=== PATIENT | female | born 1965 | race Caucasian/White ===

== ENCOUNTER 2020-12-29 10:10 | Outpatient (CLI) | payer OTHER ==
--- NOTE | 2020-12-29 11:43 | XRAY Report ---
PROCEDURE: Foot 3 View RT INDICATIONS: RIGHT FOOT PAIN TECHNIQUE: 3 views of the foot were acquired. COMPARISON: None FINDINGS: Bones: No fractures or dislocations. No suspicious bony lesions. Soft tissues: No tibiotalar joint effusion. Achilles tendon appears normal. IMPRESSION: No trauma found, source of current right foot pain is not seen. There is a slight degree of first MTP joint space narrowing. Please correlate for point tenderness in this region which appears degenerati ve in origin. Reviewed by: Chico Levine MD on 12/29/2020 11:42 AM PDT Approved by: Chico Levine MD on 12/29/2020 11:42 AM PDT Station ID: [id number]
== END 2020-12-29 23:59 | disposition home or self-care (01) ==
LOC: DI.S 10:10
PROVIDERS: ATTEND Physician Assistant Medical
DX: M19.071 Primary osteoarthritis, right ankle and foot (principal)

== ENCOUNTER → 2021-06-07 | Outpatient (CLI) | payer OTHER ==
[2021-06-07 15:58] LABS: BILIRUBIN,URINE NEGATIVE (NEGATIVE); CLARITY,URINE CLEAR (CLEAR); GLUCOSE, URINE (UA) NEGATIVE (NEGATIVE); KETONES,URINE (UA) NEGATIVE (NEGATIVE); LEUKOCYTE ESTERASE, URINE NEGATIVE (NEGATIVE); NITRITE,URINE NEGATIVE (NEGATIVE); OCCULT BLOOD,URINE NEGATIVE (NEGATIVE); PROTEIN,URINE NEGATIVE (NEGATIVE); UROBILINOGEN,URINE 0.2 (NORMAL) E.U./dL (NORMAL)
[2021-06-07 16:12] LABS: BACTERIA,URINE None Seen /HPF (None Seen); RBC,URINE 0-5 /HPF (0-5); SQUAMOUS EPITHELIAL CELL,UR FEW Squamous (<= Few); WBC,URINE 0-3 /HPF (0-5)
== END ==
LOC: LAB.R 08:00
PROVIDERS: ATTEND Physician Assistant Medical
DX: R30.0 Dysuria (principal)
CPT/HCPCS: 81001; 87077; 87086

== ENCOUNTER 2022-08-13 15:39 | Emergency (ER) | payer BC, OTHER ==
[2022-08-13 17:19] LABS: BASOPHILS % (AUTO) 0.6 %; EOSINOPHILS # (AUTO) 0.1 10^3/uL (0.0-0.7); EOSINOPHILS % (AUTO) 1.3 %; HCT - HEMATOCRIT 42.6 % (37.0-47.0); HGB - HEMOGLOBIN 14.7 g/dL (12.0-16.0); LYMPHOCYTES # (AUTO) 2.5 10^3/uL (1.5-3.5); LYMPHOCYTES % (AUTO) 39.3 %; MEAN CORPUSCULAR HEMOGLOBIN 31.4 pg (27.0-31.0); MEAN CORPUSCULAR HGB CONC 34.5 g/dL (32.0-36.0); MEAN PLATELET VOLUME 9.2 fL (7.9-10.8); MONOCYTES # (AUTO) 0.5 10^3/uL (0.0-1.0); MONOCYTES % (AUTO) 7.7 %; NEUTROPHILS # (AUTO) 3.2 10^3/uL (1.5-6.6); NEUTROPHILS % (AUTO) 50.9 %; PLT - PLATELET COUNT 229 10^3/uL (130-450); RED BLOOD COUNT 4.68 10^6/uL (4.20-5.40); RED CELL DISTRIBUTION WIDTH 12.2 % (12.0-15.0); WHITE BLOOD COUNT 6.3 x10^3/uL (4.8-10.8)
[2022-08-13 17:33] LABS: ALBUMIN 4.3 g/dL (3.2-5.5); ALBUMIN/GLOBULIN RATIO 1.7 (1.0-2.2); BILIRUBIN,TOTAL 0.9 mg/dL (0.2-1.0); POTASSIUM 4.1 mmol/L (3.5-5.0); TOTAL PROTEIN 6.8 g/dL (6.7-8.2)
[2022-08-13 17:51] LABS: BILIRUBIN,URINE NEGATIVE (NEGATIVE); GLUCOSE, URINE (UA) NEGATIVE (NEGATIVE); KETONES,URINE (UA) NEGATIVE (NEGATIVE); LEUKOCYTE ESTERASE, URINE NEGATIVE (NEGATIVE); NITRITE,URINE NEGATIVE (NEGATIVE); OCCULT BLOOD,URINE NEGATIVE (NEGATIVE); PROTEIN,URINE NEGATIVE (NEGATIVE); UROBILINOGEN,URINE 0.2 (NORMAL) E.U./dL (NORMAL)
[2022-08-13 17:53] LABS: CLARITY,URINE CLEAR (CLEAR)
[2022-08-13 18:24] VITALS: BP 160/94
[2022-08-13] MEDS ORDERED: KETOROLAC 30 MG/ML VIAL IVP STA (18:27)
[2022-08-13] MEDS ORDERED: iohexoL-300 100 ML VIAL ONE (18:30)
[2022-08-13] MEDS ORDERED: IBUPROFEN 600 MG TABLET PO STA (18:39)
--- NOTE | 2022-08-13 18:44 | ED Physician Documentation ---
History of Present Illness - Stated complaint Stated Complaint: SEVERE BACK PX - Chief complaint Chief Complaint: Abd Pain - Additonal information Additional information: 57-year-old female presents emergency department for evaluation of posterior back pain that has been getting worse since recent diagnosis of urinary tract infection on 30 July. She was prescribed a 10-day course of cephalexin which she was supposed to take 4 times a day. She is only been able to manage to take it 2-3 times a day However despite this she has begun having some pain in her back near her kidney area. She did get a massage yesterday and the massage therapist told her she could potentially have pyelonephritis. The patient is denying any fevers vomiting. She has had some loose and watery stools over the last 24 hours, nonbloody. Past surgical history most significant for total abdominal hysterectomy at 42. She is on estrogen. Review of Systems Nose: reports: Reviewed and negative Throat: reports: Reviewed and negative Cardiac: reports: Reviewed and negative Respiratory: reports: Reviewed and negative GI: reports: Diarrhea. denies: Abdominal Pain : reports: Dysuria, Frequency, Hesitancy Skin: reports: Reviewed and negative Musculoskeletal: reports: Reviewed and negative PD PAST MEDICAL HISTORY - Allergies Allergies/Adverse Reactions: Allergies Allergy/AdvReac Type Severity Reaction Status Date / Time benzoin Allergy Unknown Verified 08/13/22 16:23 cefdinir Allergy Unknown Verified 08/13/22 16:23 Penicillins Allergy Unknown Verified 08/13/22 16:23 codeine AdvReac Nausea Verified 08/13/22 16:23 PD ED PE NORMAL - General General: Alert and oriented X 3, No acute distress - HEENT HEENT: PERRL - Neck Neck: Supple, no meningeal sign - Cardiac Cardiac: RRR, No murmur - Respiratory Respiratory: No respiratory distress, Clear bilaterally - Abdomen Abdomen: Normal bowel sounds, Soft, Non tender - Back Back: No CVA TTP (Focal tenderness elicited just below the CVA region on both sides without swelling erythema or ecchymosis. 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 Eye Opening: Spontaneous Motor: Obeys Commands Verbal: Oriented GCS Score: 15 Results - Vitals Vitals: Vital Signs - 24 hr 08/13/22 08/13/22 08/13/22 16:19 18:21 19:20 Temperature 36.8 C Heart Rate 63 58 L 72 Respiratory 16 20 16 Rate Blood Pressure 136/85 H 160/94 H O2 Saturation 96 98 97 Oxygen O2 Source Room air - Labs Labs: Laboratory Tests 08/13/22 08/13/22 08/13/22 05:14 05:14 17:44 WBC 6.3 RBC 4.68 Hgb 14.7 Hct 42.6 MCV 91.0 MCH 31.4 H MCHC 34.5 RDW 12.2 Plt Count 229 MPV 9.2 Neut # (Auto) 3.2 Lymph # (Auto) 2.5 [place] # (Auto) 0.5 Eos # (Auto) 0.1 Baso # (Auto) 0.0 Absolute Nucleated RBC 0.00 Nucleated RBC % 0.0 Sodium 139 Potassium 4.1 Chloride 103 Carbon Dioxide 30 Anion Gap 6.0 BUN 12 Creatinine 1.0 Estimated GFR (MDRD) 58 L Glucose 106 H Calcium 9.0 Total Bilirubin 0.9 AST 28 ALT 42 Alkaline Phosphatase 38 L Total Protein 6.8 Albumin 4.3 Globulin 2.5 Albumin/Globulin Ratio 1.7 Lipase 40 Urine Color YELLOW Urine Clarity CLEAR Urine pH 7.0 Ur Specific [place] <=1.005 Urine Protein NEGATIVE Urine Glucose (UA) NEGATIVE Urine Ketones NEGATIVE Urine Occult Blood NEGATIVE Urine Nitrite NEGATIVE Urine Bilirubin NEGATIVE Urine Urobilinogen 0.2 (NORMAL) Ur Leukocyte Esterase NEGATIVE Ur Microscopic Review NOT INDICATED Urine Culture Comments NOT INDICATED - Rads (name of study) CT abd Radiology: Final report received (No acute abnormalities. No renal stones or hydronephrosis. Mild hepatomegaly and moderate hepatic steatosis. Mild diverticulosis without-itis. Normal appendix) PD MEDICAL DECISION MAKING - ED course Complexity details: reviewed results, re-evaluated patient, considered differential, d/w patient ED course: 57-year-old female presents emergency department for focal posterior back pain just below her CVA margins. She was diagnosed with a urinary tract infection on the and started on Keflex. She continues to have some dysuria and urgency. Today CBC and electrolytes were without acute worrisome findings. Her urine is unremarkable for markers of infection. Her abdominal exam was also benign. Patient was quite concerned however that she could have an ascending infection or pyelonephritis despite lack of fevers or leukocytosis. Therefore we completed a CT of the abdomen that does not show any acute obvious findings. There is incidental note made of diverticulitis as well as some hepatic stea tosis/hepatomegaly. These findings were discussed with the patient and her at the bedside. She had been administered Tylenol here in the emergency department which seemed to improve her symptoms and I am making the recommendation she continue this at home. I do not have any clinical findings to suggest acute cystitis. Given her age and obesity it is possible that she is entering menopause and may simply have overactive bladder versus interstitial cystitis. She is advised to follow closely with her primary care provider. Otherwise emergent return precautions discussed Departure - Departure Disposition: Home, Self Care Clinical Impression: Urinary urgency, Diverticulosis, Hepatomegaly, Hepatic steatosis Back pain Qualifiers: Back pain location: back pain in other location Chronicity: acute Qualified Code(s): M54.9 - Dorsalgia, unspecified Condition: Stable Record reviewed to determine appropriate education?: Yes Comments: Tarsha dumont are seen today in the emergency department because you have been having Some back pain just below your kidney region that began today. You are diagnosed with a urinary tract infection on 30 July and began taking Cephalexin. Here in the emergency department your CBC, electrolytes and urine were all essentially unremarkable. There is nothing to suggest a urinary tract infection. You can stop taking the cephalexin. We did do a CT of your abdomen. There is an incidental note made of some hepatic steatosis or fatty liver as well as diverticulosis of the large intestine. There is nothing surgical and nothing to suggest kidney stones, ureter stones or even pyelonephritis. Given your age, and your medical history I suspect that you may be developing an overactive bladder or even developing interstitial cystitis. I would like you to discuss this closely with your primary care provider. If at any point you develop fevers, have uncontrolled vomiting, have sudden severe abdominal pain or fainting episodes and please return immediately to the ER for second evaluation.
--- NOTE | 2022-08-13 19:23 | CT Report ---
PROCEDURE: ABDOMEN/PELVIS WO INDICATIONS: bilateral posterior flank pain TECHNIQUE: Noncontrast 5 mm thick sections acquired from the diaphragms to the symphysis. 5 mm coronal and sagi ttal reformats were then performed. For radiation dose reduction, the following was used: automated exposure control, adjustment of mA and/or kV according to patient size. COMPARISON: None. FINDINGS: Image quality: Excellent. ABDOMEN: Lung bases: Mild scars and atelectasis in right middle lobe and lingula. Heart size is normal. Smal l hiatal hernia. Solid organs: Liver is mildly enlarged. There is moderate hepatic steatosis. Spleen are normal in si ze. Gallbladder is normal. Pancreas is normal in contours. No adrenal nodules. Kidneys are normal in size, without hydronephrosis or nephrolithiasis. Peritoneum and bowel: Unenhanced bowel loops demonstrate normal wall thickness and caliber. Appendix is normal. Mild diverticulosis. No acute diverticulitis. No free fluid or air. Nodes and vessels: No retroperitoneal or mesenteric adenopathy by size criteria. Aorta and inferior vena cava are normal in caliber. Miscellaneous: Small fat-containing umbilical hernia. PELVIS: Genitourinary: Bladder wall thickness is normal. Uterus is absent. Ovaries are not visualized. No f ree fluid in pelvis. Miscellaneous: No inguinal hernias or adenopathy. Bones: No suspicious bony lesions. No vertebral body compression fractures. IMPRESSION: 1. No acute abnormalities. No renal stones or hydronephrosis. 2. Mild hepatomegaly and moderate hepatic steatosis. 3. Mild diverticulosis. No diverticulitis. 4. Normal appendix. Reviewed by: Abdirashid Perez MD on 08/13/2022 7:21 PM PST Approved by: Abdirashid Perez MD on 08/13/2022 7:21 PM PST Station ID: [id number]
== END 2022-08-13 20:10 | disposition home or self-care (01) ==
LOC: ED 15:39
DX: K57.90 Diverticulosis of intestine, part unspecified, without perforation or abscess without bleeding (principal); K76.0 Fatty (change of) liver, not elsewhere classified; R16.0 Hepatomegaly, not elsewhere classified; R39.15 Urgency of urination; M54.9 Dorsalgia, unspecified
CPT/HCPCS: 36415; 74176; 80053; 81003; 83690; 85025; 99282; 99284; A9270; 81001; 87086

== ENCOUNTER 2022-10-21 08:00 | Outpatient (CLI) | payer BC | END 2022-10-21 23:59 | disposition home or self-care (01) | LOC: LAB 08:00 | PROVIDERS: ATTEND Physician Assistant Medical | DX: R50.9 Fever, unspecified (principal); J02.9 Acute pharyngitis, unspecified | CPT/HCPCS: 87070 ==

== ENCOUNTER 2023-04-01 08:43 | Emergency (ER) | payer BC, MEDICAID ==
[2023-04-01 09:12] VITALS: BP 169/92
[2023-04-01 10:32] LABS: BILIRUBIN,URINE NEGATIVE (NEGATIVE); GLUCOSE, URINE (UA) NEGATIVE (NEGATIVE); KETONES,URINE (UA) NEGATIVE (NEGATIVE); LEUKOCYTE ESTERASE, URINE NEGATIVE (NEGATIVE); NITRITE,URINE NEGATIVE (NEGATIVE); OCCULT BLOOD,URINE NEGATIVE (NEGATIVE); PROTEIN,URINE NEGATIVE (NEGATIVE); UROBILINOGEN,URINE 0.2 (NORMAL) E.U./dL (NORMAL)
[2023-04-01 10:33] LABS: CLARITY,URINE CLEAR (CLEAR)
--- NOTE | 2023-04-01 10:35 | ED Physician Documentation ---
PD HPI FEMALE - Stated complaint Stated Complaint: DIZZINESS,RIB PX - Chief complaint Chief Complaint: UTI - History obtained from History obtained from: Patient, Family - History of Present Illness Timing - onset: How many weeks ago (2) Timing - duration: Weeks (2) Timing - details: Gradual onset, Still present, Waxing and waning Associated symptoms: Back pain, Urinary frequency OB-EMPLOYEE RELATIONS MANAGER History: Hysterectomy Similar symptoms before: Diagnosis (back spasm/urinary tract infection) Recently seen: Not recently seen - Additional information Additional information: 57-year-old Tarsha Arreguin has developed some difficulty with her urination and she is feeling some urinary urgency and frequency she is also feeling some pain in her back. She is afraid that she might have another kidney infection. She is not vomiting she does not have fever. She has pain with movement. She does describe a long car trip the day before the back pain started. Review of Systems Constitutional: denies: Fever Eyes: denies: Loss of vision, Decreased vision, Photophobia Ears: denies: Ear pain Nose: denies: Rhinorrhea / runny nose, Congestion Throat: denies: Sore throat Cardiac: denies: Chest pain / pressure, Palpitations Respiratory: denies: Dyspnea, Cough GI: denies: Abdominal Pain, Nausea, Vomiting, Constipation, Diarrhea : reports: Frequency. denies: Dysuria Skin: denies: Rash Musculoskeletal: reports: Back pain. denies: Neck pain, Extremity pain PD PAST MEDICAL HISTORY - Past Medical History Past Medical History: No - Past Surgical History Past Surgical History: No - Present Medications Home Medications: Ambulatory Orders Medication Instructions Recorded Confirmed Cyclobenzaprine [Flexeril] 10 mg PO TID PRN #20 tablet 04/01/23 HYDROcod/ACETAM 5/325 [[place] 5/325] 1 - 2 tablet PO Q6H PRN #14 tablet 04/01/23 Progesterone, Micronized 200 mg PO Q2D 04/01/23 04/01/23 [Prometrium] - Allergies Allergies/Adverse Reactions: Allergies Allergy/AdvReac Type Severity Reaction Status Date / Time benzoin Allergy Unknown Verified 04/01/23 09:00 cefdinir Allergy Unknown Verified 04/01/23 09:00 Penicillins Allergy Unknown Verified 04/01/23 09:00 codeine AdvReac Nausea Verified 04/01/23 09:00 - Social History Does the pt smoke?: No Smoking Status: Never smoker PD ED PE NORMAL - Vitals Vital signs reviewed: Yes (hypertensive) - General General: Alert and oriented X 3, No acute distress, Well developed/nourished - HEENT HEENT: Atraumatic, PERRL, EOMI - Neck Neck: Supple, no meningeal sign, No bony TTP - Cardiac Cardiac: RRR, No murmur - Respiratory Respiratory: No respiratory distress, Clear bilaterally - Abdomen Abdomen: Normal bowel sounds, Soft, Non tender, Non distended, No organomegaly - Back Back: No spinal TTP, Other (mild right CVA tenderness seems like over a rib. specific area. ) - Derm Derm: Normal color, Warm and dry, No rash - Extremities Extremities: No deformity, No edema - Neuro Neuro: Alert and oriented X 3, watermaster 2-12 intact, No motor deficit, No sensory deficit, Normal speech Eye Opening: Spontaneous Motor: Obeys Commands Verbal: Oriented GCS Score: 15 - Psych Psych: Normal mood, Normal affect Results - Vitals Vitals: Vital Signs - 24 hr 04/01/23 09:00 Temperature 36.4 C L Heart Rate 73 Respiratory 18 Rate Blood Pressure 169/92 H O2 Saturation 98 Oxygen O2 Source Room air - Labs Labs: Laboratory Tests 04/01/23 09:34 Urine Color YELLOW Urine Clarity CLEAR Urine pH 7.0 Ur Specific [place] 1.020 Urine Protein NEGATIVE Urine Glucose (UA) NEGATIVE Urine Ketones NEGATIVE Urine Occult Blood NEGATIVE Urine Nitrite NEGATIVE Urine Bilirubin NEGATIVE Urine Urobilinogen 0.2 (NORMAL) Ur Leukocyte Esterase NEGATIVE Ur Microscopic Review NOT INDICATED Urine Culture Comments NOT INDICATED Procedures - IVC sono (time) 1050 Bedside IVC sono: IVC measures (cm) (0.82), Dehydration (est 2 liter deficit) PD Medical Decision Making - ED course Complexity details: reviewed results, re-evaluated patient, considered differential, d/w patient, d/w family Reviewed Lab Results: We reviewed a urinalysis which was completely unremarkable. My interpretation of this result unlikely related to urinary tract infection. ED course: 57 y/o female with flank pain after a long car trip has symptoms of frequency and a urinalysis is unremarkable. We did find that she was dehydrated when we interrogated the IVC it POCUS. This is suspected to be from not getting up frequently enough to get water secondary to back pain. She is not vomiting, she does not have diarrhea or diabetes and oral hydration is a good option. She is administered medication for pain. Departure - Departure Disposition: 01 Home, Self Care Clinical Impression: Back muscle spasm, Dehydration Condition: Stable Instructions: ED Spasm Back No Trauma, ED Dehydration Follow-Up: Your, doctor [Other] Prescriptions: Cyclobenzaprine [Flexeril] 10 mg PO TID PRN #20 tablet PRN Reason: Spasms HYDROcod/ACETAM 5/325 [[place] 5/325] 1 - 2 tablet PO Q6H PRN #14 tablet PRN Reason: Pain Comments: Tarsha, today it looks like you have spasm in your back likely from the long car trip you were in last week. I have E scribed some pain medication a muscle relaxant to the [facility] [place]. In addition we find that you are dehydrated today and this is likely from not getting up to get water. Since you are not having an issue with vomiting or diarrhea oral hydration should work well for this and my recommendation is to hydrate today. Discharge Date/Time: 04/01/23 11:15
[2023-04-01] MEDS ORDERED: HYDROcod/ACETAM 5/325 MG TABLET PO STA (10:46)
[2023-04-01] MEDS ORDERED: CYCLOBENZAPRINE 10 MG TABLET PO STA (10:47)
== END 2023-04-01 11:15 | disposition home or self-care (01) ==
LOC: ED 08:43
DX: M62.830 Muscle spasm of back (principal); E86.0 Dehydration
CPT/HCPCS: 81003; 99283; 99284; A9270; 81001; 87086